=== PATIENT | male | born 1940 | race Caucasian/White ===

== ENCOUNTER → 2017-05-17 | Outpatient (CLI) | payer MEDICARE ==
[2016-11-12 13:40] VITALS: BP 156/93
--- NOTE | 2017-05-17 11:00 | RAD ---
Indication: Tobacco use. Axial imaging through the chest was performed without contrast. Correlation is made with prior CT chest from 05/12/2016. No axillary lymphadenopathy is detected. Small lymph nodes in the superior mediastinum are stable. No definite mediastinal or hilar lymphadenopathy is detected. There are coronary arterial calcifications present. No pericardial or pleural fluid is identified. Parenchymal evaluation does show centrilobular emphysematous changes throughout both lungs. There is some linear parenchymal scarring in the right lower lobe with minimal subpleural nodularity seen, stable when compared with prior exam. No new parenchymal nodules identified. The upper abdomen is unremarkable. Impression: Stable noncontrast CT chest when compared with prior examination from one year earlier. PQRS Compliance Statement: One or more of the following individualized dose reduction techniques were utilized for this examination: 1. Automated exposure control 2. Adjustment of the mA and/or kV according to patient size 3. Use of iterative reconstruction technique
== END | disposition home or self-care (01) ==
LOC: CT 09:57
PROVIDERS: ATTEND Family Medicine
DX: I25.10 Atherosclerotic heart disease of native coronary artery without angina pectoris (principal); J43.2 Centrilobular emphysema; Z87.891 Personal history of nicotine dependence
CPT/HCPCS: 71250

== ENCOUNTER → 2018-07-10 | Outpatient (CLI) | payer MEDICARE ==
[2016-11-12 13:40] VITALS: BP 156/93
--- NOTE | 2018-07-10 15:07 | RAD ---
Low-dose CT of the chest without contrast, 07/10/2018: History: Lung cancer screening, 30 pack-year smoking history Noncontrast scans were obtained utilizing a low-dose technique. Comparison is made to a study from 05/17/2017. Moderate emphysematous changes are present in the lungs with scattered parenchymal scars. There are multiple subpleural and paraseptal blebs. There are several thin-walled air-containing cysts. A small nodule abutting the pleura in the lateral aspect of the right lower lobe best seen on image 185 of series #2 is unchanged since 05/17/2017. It measures 8 x 4.5 mm on the axial images. No new pulmonary nodularity or mass is seen. There is no evidence of pleural fluid. There is moderate calcific plaquing of the thoracic aorta without evidence of aneurysm. Moderate coronary artery calcifications are present. Several small mediastinal lymph nodes are stable. No mediastinal adenopathy is evident. There are moderate scattered degenerative changes in the spine. IMPRESSION: 1. Moderate pulmonary emphysema with scattered parenchymal scars. 2. Stable small right lower lobe nodule. This is considered to be Lung-RADS Category 2. [address] follow-up is suggested. 3. Moderate calcific plaquing of the aorta and coronary arteries. PQRS Compliance Statement: One or more of the following individualized dose reduction techniques were utilized for this examination: 1. Automated exposure control 2. Adjustment of the mA and/or kV according to patient size 3. Use of iterative reconstruction technique
== END | disposition home or self-care (01) ==
LOC: CT 07:21
PROVIDERS: ATTEND Family Medicine
DX: Z12.2 Encounter for screening for malignant neoplasm of respiratory organs (principal); J43.8 Other emphysema; I10 Essential (primary) hypertension; E78.00 Pure hypercholesterolemia, unspecified; I25.10 Atherosclerotic heart disease of native coronary artery without angina pectoris; R91.1 Solitary pulmonary nodule; Z87.891 Personal history of nicotine dependence
CPT/HCPCS: G0297

== ENCOUNTER → 2019-07-02 | Outpatient (CLI) | payer MEDICARE ==
[2016-11-12 13:40] VITALS: BP 156/93
--- NOTE | 2019-07-02 15:38 | RAD ---
PQRS Compliance Statement: One or more of the following individualized dose reduction techniques were utilized for this examination: 1. Automated exposure control 2. Adjustment of the mA and/or kV according to patient size 3. Use of iterative reconstruction technique CT chest without contrast July 02, 2019 INDICATION: Lung nodule. COMPARISON: CT chest May 17, 2017 TECHNIQUE: Multiple axial CT images of the chest were obtained without intravenous contrast. Coronal and sagittal reformats are provided. FINDINGS: There is mild centrilobular and paraseptal pulmonary emphysema. Bronchial wall thickening suggestive of bronchitis. There are no pleural effusions. No pulmonary vascular congestion or pneumothorax. Respiratory motion limits evaluation of the lung bases. Bandlike density in the right lower lobe most favors subsegmental atelectasis versus infiltrate. There is a subpleural 3 mm solid noncalcified pulmonary nodule in the right middle lobe (series 13, image 182) which is stable dating back to May 09, 2017. No new or enlarging solid noncalcified pulmonary nodules are identified. Subpleural nodule identified in the lateral right lower lobe previously measuring 8.5 mm is stable (series 13, image 201). Thyroid gland is normal in appearance. No pathologically enlarged bilateral hilar lymph nodes are identified within the limitations of a noncontrast examination. Subcarinal lymph node measures 9 mm. Ascending thoracic aorta measures 3.5 cm. Heart size is within normal limits. Three-vessel coronary artery vascular calcifications are identified. No suspicious osseous abnormality is identified. Issues abnormalities identified involving the visualized portions of the upper abdomen. IMPRESSION: 1. No new or enlarging solid noncalcified pulmonary nodules. Stable previously seen pulmonary nodules measuring up to 8.5 mm (lung RADS category 2, benign appearance). Recommend 12 month follow-up low-dose chest CT. 2. COPD changes are present with mild centrilobular and paraseptal pulmonary emphysema. Electronically signed by: Ila Ruiz MD (07/02/2019 3:35 PM) [id number]
== END | disposition home or self-care (01) ==
LOC: CT 14:16
PROVIDERS: ATTEND Internal Medicine Pulmonary Disease
DX: J43.9 Emphysema, unspecified (principal); R91.8 Other nonspecific abnormal finding of lung field
CPT/HCPCS: 71250

== ENCOUNTER → 2020-07-17 | Outpatient (CLI) | payer MEDICARE ==
[2016-11-12 13:40] VITALS: BP 156/93
--- NOTE | 2020-07-17 14:20 | RAD ---
CT CHEST WO CONTRAST Indication: Lung nodule Technique: Noncontrast CT imaging was performed of the chest, multiplanar reconstruction images submitted. One or more of the following individualized dose reduction techniques were utilized for this examination: 1. Automated exposure control 2. Adjustment of the mA and/or kV according to patient size 3. Use of iterative reconstruction technique. Comparison: Exams back to May 12, 2016 Findings: Greater than older exams although more similar to 2019 exam, there is somewhat bandlike density of the right lower lobe such as seen image 173 series 3 about 4.6 cm transverse by 1 cm AP. There is adjacent focus of 1.2 cm nodularity image 177 series 3 also similar to 2019 exam, more prominent than older exams. Adjacent subpleural right lower lobe nodule 0.9 cm image 185 series 3 is similar compared with older exam. 0.6 cm right lower lobe subpleural nodule image 173 series 3 is stable compared with older exams. 0.2 cm posterior right upper lobe nodule image 99 series 3 is unchanged. 0.3 cm subpleural right upper lobe nodule image 164 series 3 is unchanged. 0.3 cm right middle lobe nodule image 197 is stable. There is 0.2 cm subpleural left upper lobe nodule image 133. There is no new infiltrate, pleural or pericardial fluid, or pneumothorax. There is prominent coronary calcification. Thoracic aortic caliber is within limits, some scattered plaque present. There is multilevel thoracic spondylosis. There is again centrilobular and paraseptal emphysema. There are again thin walled air cysts of the lower lobes bilaterally. No new significantly enlarged nodes are identified of the chest, again some small mediastinal nodes. Minimal density with linear morphology in the mainstem bronchi greater on the right is more likely due to mucus. IMPRESSION: 1. There is persistent focus of bandlike density of the right lower lobe adjacent focus of nodularity, findings similar to 2019 exam although greater than older exams. Findings may be component of fibrotic change and atelectasis although attention on continued follow-up such as in 6 months is recommended as per revised Fleischner guidelines. No new suspicious lung nodularity is identified. 2. There is again prominent coronary calcification. 3. There is emphysema. Electronically signed by: Vinicio Simmons MD (07/17/2020 2:17 PM) [facility]
== END | disposition home or self-care (01) ==
LOC: CT 09:17
PROVIDERS: ATTEND Internal Medicine Pulmonary Disease
DX: J43.2 Centrilobular emphysema (principal); J92.9 Pleural plaque without asbestos; J98.4 Other disorders of lung; I25.10 Atherosclerotic heart disease of native coronary artery without angina pectoris; M47.814 Spondylosis without myelopathy or radiculopathy, thoracic region
CPT/HCPCS: 71250

== ENCOUNTER 2020-08-27 22:07 | Emergency (ER) | payer MEDICARE ==
[~2020-08-27] VITALS: Ht 182.9 cm; Wt 90.9 kg
[2020-08-27 22:35] LABS: BASO # 0.1 x10^3/uL (0.0-0.2); BASO % 1 % (0-3); EOS # 0.4 x10^3/uL (0.0-0.7); EOS % 5 % (0-3); HEMATOCRIT 50.3 % (39.0-53.0); HEMOGLOBIN 16.9 g/dL (13.0-17.5); LYMPH # 1.5 x10^3/uL (1.0-4.8); LYMPH % 19 % (24-48); MEAN CORPUSCULAR HEMOGLOBIN 33 pg (25-35); MEAN CORPUSCULAR HGB CONC 34 g/dL (31-37); MEAN CORPUSCULAR VOLUME 99 fL (79-100); MONO # 0.8 x10^3/uL (0.0-1.1); MONO % 10 % (0-9); NEUT # 5.3 x10^3/uL (1.8-7.7); NEUT % 66 % (31-73); PLATELET COUNT 198 x10^3/uL (140-400); RED BLOOD COUNT 5.08 x10^6/uL (4.30-5.70); RED CELL DISTRIBUTION WIDTH 14.6 % (11.5-14.5); WHITE BLOOD COUNT 8.1 x10^3/uL (4.0-11.0)
--- NOTE | 2020-08-27 22:36 | PHYS DOC ---
Past Medical History Past Medical History: COPD, GERD, High Cholesterol, Hypertension Past Surgical History: Tonsillectomy Smoking Status: Current Every Day Smoker Alcohol Use: Heavy Drug Use: None General Adult EDM: Chief Complaint: MECHANICAL FALL HPI: HPI: 80-year-old male past medical history significant for hypertension, hyperlipidemia, GERD, tobacco dependence with COPD and daily alcohol abuse (scotch whiskey), presents to the ED with complaints of sharp, nonradiating neck pain after patient had an accidental fall at 2:30 PM this afternoon while going upstairs. Patient states he lost his balance and fell backwards, hitting his head on a humidifier and a carpeted floor (underlying cement), no LOC. Also states "I bruised my tailbone." Patient states he had dinner and a drink of scotch whiskey and the pain continued to worsen. No relief with 2 tablets of Tylenol. Patient states while he was in the ed waiting room he got up to walk and felt something pop as if you were popping knuckles. Denies any prior head or neck injury. Denies any saddle anesthesia, midline thoracic/lumbar or pelvic pain, urinary or bowel retention or incontinence. Denies any drug use. Denies any weakness or loss of sensation. Is not on any anticoagulants. Review of Systems: Review of Systems: Constitutional: Denies fever or chills. [] Eyes: Denies change in visual acuity. [] Or vision loss HENT: Denies nasal congestion or sore throat. [] Respiratory: Denies cough or shortness of breath. [] Or hemoptysis Cardiovascular: Denies chest pain or edema. [] Or syncope GI: Denies abdominal pain, nausea, vomiting, bloody stools or diarrhea. [] : Denies dysuria. [] Or hematuria Musculoskeletal: Denies back pain or joint pain. [] Integument: Denies rash. [] Or swelling Neurologic: Denies headache, focal weakness or sensory changes. [] No associa caryn dizziness, lightheadedness, Endocrine: Denies polyuria or polydipsia. [] Lymphatic: Denies swollen glands. [] Psychiatric: Denies depression or anxiety. [] Heart Score: Risk Factors: Risk Factors: DM, Current or recent (<one month) smoker, HTN, HLP, family history of CAD, obesity. Risk Scores: Score 0 - 3: 2.5% MACE over next 6 weeks - Discharge Home Score 4 - 6: 20.3% MACE over next 6 weeks - Admit for Clinical Observation Score 7 - 10: 72.7% MACE over next 6 weeks - Early Invasive Strategies Allergies: Allergies: Allergies Coded Allergies Type Severity Reaction Last Updated Verified No Known Drug Allergies 11/11/16 No Physical Exam: PE: Constitutional: Well developed, well nourished, no acute distress, non-toxic appearance. [] HENT: Normocephalic, atraumatic, no hematoma, bilateral external ears normal, oropharynx dry, no oral exudates, nose normal. [] w/dentures, TMs normal, no septal hematoma Eyes: PERRLA, EOMI, conjunctiva normal, no discharge. [] Neck: Normal range of motion, cannot appreciate midline neck pain, c-collar in pain, supple, no stridor. [] Cardiovascular:Heart rate regular rhythm, no murmur [] Lungs & Thorax: Bilateral breath sounds clear to auscultation [] Abdomen: Bowel sounds normal, soft, no tenderness, no masses, no pulsatile masses. [] No pelvic pain with hip rocking Skin: Warm, dry, no erythema, no rash. [] Back: No midline or lateral tenderness, no CVA tenderness. [] Extremities: No tenderness, no cyanosis, no clubbing, ROM intact, no edema. [] 5/5 equal UE muscle strength Neurologic: Alert and oriented X 3, normal motor function, normal sensory function, no focal deficits noted. [] Psychologic: Affect normal, judgement normal, mood normal. [] Current Patient Data: Vital Signs: Vital Signs Date Time Temp Pulse Resp B/P (MAP) Pulse Ox O2 Delivery O2 Flow Rate FiO2 08/27/20 22:20 98.1 86 21 165/93 (117) 86 Room Air 98.1 EKG: EKG: [] Radiology/Procedures: Radiology/Procedures: IMAGING REPORT Signed PATIENT: NAVJOT CHRISTOPHER ACCOUNT: [id number] : 1940 LOCATION: ER AGE: 80 SEX: M EXAM STATUS: REG ER ORD. PHYSICIAN: SUMMER BHAT DO REASON: fall PROCEDURE: CT HEAD AND CERVICAL SPINE WO Exam: CT head and cervical spine INDICATION: Fall TECHNIQUE: Sequential axial images through the head and cervical spine were obtained without the administration of IV contrast. Comparisons: None FINDINGS: Head: No focal parenchymal lesion or hemorrhage is identified. There is no midline shift or sulcal effacement. No acute vascular territory infarction is identified. Apple-white distinction is preserved. The ventricular system is within normal limits without compression hydrocephalus. The basal cisterns are well maintained. The visualized portions of the paranasal sinuses and mastoid air cells are well-pneumatized. No acute fractures. Cervical spine: Vertebral body heights and alignment are well-maintained. Fracture to the cervical spine is not identified. Multilevel spondylotic change in cervical spine with degenerative disc disease greatest at C4-C5, C5-C6 and C6-C7. Mild bilateral facet arthropathy is also noted. Visualized paraspinal soft tissues are unremarkable. IMPRESSION: 1. No acute intracranial abnormality. 2. Negative CT C-spine for acute traumatic injury. Exposure: One or more of the following in the visualized dose reduction techniques were utilized for this examination: 1. Automated exposure control 2. Adjustment of the MA and/or KV according to patient size Use of iterative of reconstructive technique Electronically signed by: Emil Crook MD (08/27/2020 11:03 PM) [facility] DICTATED and SIGNED BY: EMIL CROOK MD DATE: 08/27/202302 IMAGING REPORT Signed PATIENT: NAVJOT CHRISTOPHER ACCOUNT: [id number] : 1940 LOCATION: ER AGE: 80 SEX: M EXAM STATUS: REG ER ORD. PHYSICIAN: SUMMER BHAT DO REASON: fall PROCEDURE: PELVIS AP pelvis x-ray HISTORY: Fall, pain. FINDINGS: The upper iliac crests and upper sacrum are outside the [id number]. The visualized pelvis and the [id number]-[id number] demonstrates no fracture or dislocation. Mild acetabulum spurring of the hips bilaterally. IMPRESSION: No acute osseous injury of the imaged pelvis. The upper iliac crests and sacrum are outside the [id number] and are not evaluated. AP chest x-ray HISTORY: Fall. FINDINGS: Heart size normal. Mediastinal silhouette is normal. No pneumothorax. No pleural effusions. Mild discoid atelectasis left lower lobe. Bones unremarkable. IMPRESSION: No acute process. Mild discoid atelectasis at the left lower lobe. Electronically signed by: Kasey Bond MD (08/27/2020 11:12 PM) [facility] [place]CTATED and SIGNED BY: KASEY BOND MD DATE: 08/27/20 9908 Course & Med Decision Making: Course & Med Decision Making Pertinent Labs and Imaging studies reviewed. (See chart for details) The patient presented to the emergency department with a c-collar in place. With a c-collar in place I performed an initial exam and determined that the Nexus C-spine criteria are negative: There is no post midline tenderness, the patient is not intoxicated, there is a normal level of alertness, there are no focal neurologic deficits and there are no distracting injuries. Therefore the c-collar has been removed. On re-eval pt with abrasion to left elbow, no ttp over bone with normal rom. Tetanus UTD. Pain over coccyx-mild. Neck pain is right lateral neck pain, worsened when turning his head. Declines muscle relaxers or narcotics. Not have NSAIDs due to chronic kidney disease. Has Tylenol at home and Biofreeze at home. Will prescribe a Lidoderm patch. CT imaging of the head and cervical spine showed no acute traumatic injury. Chest and pelvic x-ray with no fracture. Labs show stable chronic kidney disease stage III. Patient with no preceding symptoms, no syncope, accidental mechanical fall while mildly intoxicated. Strict ED return precautions were given for neurologic deficits, saddle anesthesia, weakness or sensory changes, severe headache or nausea or vomiting. Encouraged urgent outpatient follow-up with PMD and neurosurgery if pain should persist. Life-threatening processes were considered but are low suspicion at this time, given history and physical exam. Pt was educated on all prescription medications and adverse effects. All patient's questions were answered and pt was stable at time of discharge. Life/limb-threatening differential includes but is not limited to, intracranial hemorrhage, diffuse axonal injury, spinal cord syndrome, unstable cervical fracture or SCIWORA, fractures or joint dislocations, neurovascular injuries, organ injury or laceration, pneumothorax, pneumoperitoneum, pericardial tamponade, unstable pelvic fracture, compartment syndrome, flail chest or respiratory distress, burn injury or asphyxiation I spoken with the patient and her caregivers. I explained the patient's condition, diagnoses and treatment plan based on the information available to me at this time. I have answered the patient and her caregiver's questions and addressed any concerns. The patient and her caregivers have a good understanding of patient's diagnosis, condition and treatment plan as can be expected at this point. Vital signs have been stable. Patient's condition is stable and appropriate for discharge from the emergency department. Patient will pursue further outpatient evaluation with primary care physician or other designated or consulting physician as outlined in the discharge instructions. The patient and/or caregivers are agreeable to this plan of care and follow-up instructions have been explained in detail. The patient and/or caregivers have received these instructions in written form and have expressed an understanding of the discharge instructions. The patient and/or caregivers are aware that any significant change of condition or worsening of symptoms should prompt immediate return to this or the closest emergency department or call to [phone]. Loi Disclaimer: Loi Disclaimer: This electronic medical record was generated, in whole or in part, using a voice recognition dictation system. Departure Departure Impression: Primary Impression: Fall Additional Impressions: Neck pain CKD (chronic kidney disease) Alcohol abuse Disposition: 01 DC HOME SELF CARE/HOMELESS Condition: STABLE Referrals: ENRIQUE RUGGIERO (PCP) Patient Instructions: Kidney Failure, Soft Tissue Injury of the Neck Additional Instructions: FOLLOW UP WITH NEUROSURGERY: Neurological Surgery [facility] Address: [address] [place] [id number] EMERGENCY DEPARTMENT GENERAL DISCHARGE INSTRUCTIONS Thank you for coming to [facility] Emergency Department (ED) today and trusting us with you care. We trust that you had a positive experience in our Emergency Department. If you wish to speak to the department management, you may call the Director at [phone]. YOUR FOLLOW UP INSTRUCTIONS ARE FOLLOWS: 1. Do you have a private Doctor? If you do not have a private doctor, please ask for a resource list of physicians or clinics that may be able to assist you with follow up care. 2. The Emergency Physicain has interpreted your x-rays. The X-Ray specialist will also review them. If there is a change in the findings, you will be notified in 48 hours when at all possible. 3. A lab test or culture has been done, your results will be reviewed and you will be notified if you need a change in treatment. ADDITIONAL INSTRUCTIONS AND INFORMATION: 1. Your care today has been supervised by a physician who is specially trained in emergency care. Many problems require more than one evaluation for a complete diagnosis and treatment. We recommend that you schedule your follow up appointment as recommended to ensure complete treatment of you illness or injury. If you are unable to obtain follow up care and continue to have a problem, or if your condition worsens, we recommend that you return to the ED. 2. We are not able to safely determine your condition over the phone nor are we able to give sound medical advice over the phone. For these safety reasons, if you call for medical advice we will ask you to come to the ED for further evaluation. 3. If you have any questions regarding these discharge instructions please call the ED at [phone]. SAFETY INFORMATION: In the interest of safety, wellness, and injury prevention; we encourage you to wear your sealbelt, if you smoke; quite smoking, and we encourage family to use a protective helmet for bicycling and other sporting events that present an increased risk for head injury. IF YOUR SYMPTOMS WORSEN OR NEW SYMPTOMS DEVELOP, OR YOU HAVE CONCERNS ABOUT YOUR CONDITION; OR IF YOUR CONDITION WORSENS WHILE YOU ARE WAITING FOR YOUR FOLLOW UP APPOINTMENT; EITHER CONTACT YOUR PRIMARY CARE DOCTOR, THE PHYSICIAN WHOSE NAME AND NUMBER YOU WERE GIVEN, OR RETURN TO THE ED IMMEDIATELY. Scripts Lidocaine (Lido Brian) 1 Each Adh..patch 1 EACH TP DAILY for pain for 4 Days, #4 PATCH Prov: SUMMER BHAT DO 08/27/20 SUMMER BHAT DO Aug 27, 2020 22:36
[2020-08-27 22:49] LABS: CALCIUM 8.9 mg/dL (8.5-10.1); CREATININE 1.9 mg/dL (0.7-1.3); GFR 34.4; POTASSIUM 4.1 mmol/L (3.5-5.1)
[2020-08-27 22:57] LABS: ALBUMIN 3.6 g/dL (3.4-5.0); ALBUMIN/GLOBULIN RATIO 0.9 (1.0-1.7); TOTAL BILIRUBIN 0.3 mg/dL (0.2-1.0); TOTAL PROTEIN 7.8 g/dL (6.4-8.2)
--- NOTE | 2020-08-27 23:06 | RAD ---
Exam: CT head and cervical spine INDICATION: Fall TECHNIQUE: Sequential axial images through the head and cervical spine were obtained without the administration of IV contrast. Comparisons: None FINDINGS: Head: No focal parenchymal lesion or hemorrhage is identified. There is no midline shift or sulcal effacement. No acute vascular territory infarction is identified. Apple-white distinction is preserved. The ventricular system is within normal limits without compression hydrocephalus. The basal cisterns are well maintained. The visualized portions of the paranasal sinuses and mastoid air cells are well-pneumatized. No acute fractures. Cervical spine: Vertebral body heights and alignment are well-maintained. Fracture to the cervical spine is not identified. Multilevel spondylotic change in cervical spine with degenerative disc disease greatest at C4-C5, C5-C6 and C6-C7. Mild bilateral facet arthropathy is also noted. Visualized paraspinal soft tissues are unremarkable. IMPRESSION: 1. No acute intracranial abnormality. 2. Negative CT C-spine for acute traumatic injury. Exposure: One or more of the following in the visualized dose reduction techniques were utilized for this examination: 1. Automated exposure control 2. Adjustment of the MA and/or KV according to patient size Use of iterative of reconstructive technique Electronically signed by: Emil Grace MD (08/27/2020 11:03 PM) [facility]
--- NOTE | 2020-08-27 23:14 | RAD ---
AP pelvis x-ray HISTORY: Fall, pain. FINDINGS: The upper iliac crests and upper sacrum are outside the [id number]-cd-ghcs. The visualized pelvis and the bddaq-jb-pucy demonstrates no fracture or dislocation. Mild acetabulum spurring of the hips bilaterally. IMPRESSION: No acute osseous injury of the imaged pelvis. The upper iliac crests and sacrum are outside the nmlxu-zi-nyrs and are not evaluated. AP chest x-ray HISTORY: Fall. FINDINGS: Heart size normal. Mediastinal silhouette is normal. No pneumothorax. No pleural effusions. Mild discoid atelectasis left lower lobe. Bones unremarkable. IMPRESSION: No acute process. Mild discoid atelectasis at the left lower lobe. Electronically signed by: Michel Norwood MD (08/27/2020 11:12 PM) [facility]
--- NOTE | 2020-08-27 23:14 | RAD ---
AP pelvis x-ray HISTORY: Fall, pain. FINDINGS: The upper iliac crests and upper sacrum are outside the huaeg-xj-sbka. The visualized pelvis and the uvdjy-ne-yeqq demonstrates no fracture or dislocation. Mild acetabulum spurring of the hips bilaterally. IMPRESSION: No acute osseous injury of the imaged pelvis. The upper iliac crests and sacrum are outside the evmjx-nk-tzoc and are not evaluated. AP chest x-ray HISTORY: Fall. FINDINGS: Heart size normal. Mediastinal silhouette is normal. No pneumothorax. No pleural effusions. Mild discoid atelectasis left lower lobe. Bones unremarkable. IMPRESSION: No acute process. Mild discoid atelectasis at the left lower lobe. Electronically signed by: Michel Norwood MD (08/27/2020 11:12 PM) [facility]
[2020-08-27] MEDS ORDERED: LIDO1ADH78 TP (23:55)
[2020-08-28 00:03] VITALS: BP 202/116
[2020-08-28] MEDS ORDERED: NEOMY/BACITR/POLYMYXIN OINT PACKET. TP ONE (00:30)
[2020-08-28] MEDS ORDERED: ACETAMINOPHEN 500 MG TABLET PO ONE (00:30)
[2020-08-28] MEDS ORDERED: LIDOCAINE (700MG/PATCH) PATCH. TD ONE (00:30)
== END 2020-08-28 00:19 | disposition home or self-care (01) ==
LOC: ER 22:07
DX: S50.312A Abrasion of left elbow, initial encounter (principal); M54.2 Cervicalgia; I12.9 Hypertensive chronic kidney disease with stage 1 through stage 4 chronic kidney disease, or unspecified chronic kidney disease; N18.9 Chronic kidney disease, unspecified; J44.9 Chronic obstructive pulmonary disease, unspecified; K21.9 Gastro-esophageal reflux disease without esophagitis; E78.00 Pure hypercholesterolemia, unspecified; F17.200 Nicotine dependence, unspecified, uncomplicated; F10.10 Alcohol abuse, uncomplicated; Z90.89 Acquired absence of other organs; W18.09XA Striking against other object with subsequent fall, initial encounter; Y93.89 Activity, other specified; Y92.89 Other specified places as the place of occurrence of the external cause; Y99.8 Other external cause status
CPT/HCPCS: 36415; 70450; 71045; 72125; 72170; 80053; 85025; 99285; G0480

== ENCOUNTER → 2021-01-19 | Outpatient (CLI) | payer MEDICARE ==
[~2021-01-19] MED LIST: LIDO1ADH78 TP
--- NOTE | 2021-01-19 13:47 | RAD ---
CT of the chest without contrast 01/19/2021 INDICATION: Pulmonary infiltrates COMPARISON STUDY: CT of the chest without contrast July 09, 2020. TECHNIQUE: Multidetector CT imaging of the chest was performed without IV contrast FINDINGS: There is emphysematous changes throughout the lungs. No pneumothorax or pleural effusion is identified. No acute appearing infiltrates are seen. Heart size is normal. No pericardial effusion i s identified. Dense coronary calcification noted. Scattered small mediastinal lymph nodes are seen wi thout evidence of pathologically enlarged adenopathy. The appearance is similar to comparison study. Limited visualization of the upper abdomen demonstrates no acute abnormality. Degenerative changes of the thoracic spine are noted. No acute osseous changes are seen. IMPRESSION: 1. No evidence of acute cardiopulmonary process is identified 2. Emphysema 3. Coronary calcification CT DOSING PQRS STATEMENT: One or more of the following individualized dose reduction techniques were utilized for this examinat ion: 1. Automated exposure control 2. Adjustment of the mA and/or kV according to patient size 3. Use of iterative reconstruction technique Electronically signed by: Alex Shepherd MD (01/19/2021 1:44 PM) [id number]
== END ==
LOC: CT 09:06
PROVIDERS: ATTEND Internal Medicine Pulmonary Disease
DX: J43.9 Emphysema, unspecified (principal); J84.10 Pulmonary fibrosis, unspecified; R91.8 Other nonspecific abnormal finding of lung field; I25.84 Coronary atherosclerosis due to calcified coronary lesion
CPT/HCPCS: 71250

== ENCOUNTER → 2022-01-20 | Outpatient (CLI) | payer MEDICARE ==
--- NOTE | 2022-01-20 12:19 | RAD ---
CT THORAX WO INDICATION: LUNG SCREENING. History of smoking. COMPARISON STUDY: 02/06/2021. TECHNIQUE: Unenhanced axial images were obtained through the lungs and upper abdomen using low dose technique. Coronal and sagittal multiplanar reformatted images were also obtained. PQRS compliance statement: One or more of the following individualized dose reduction techniques were utilized for this examinat ion: 1. Automated exposure control 2. Adjustment of the mA and/or kV according to patient size 3. Use of iterative reconstruction technique FINDINGS: Lung Nodules: No suspicious pulmonary nodules. Lungs and Airways: No pulmonary mass or consolidation. Paraseptal and centrilobular emphysema. Normal central airways. Pleura: Normal pleural spaces. Heart and Mediastinum: The visualized portions of the thyroid gland are normal in size and attenuatio n. No axillary or supraclavicular lymphadenopathy. No mediastinal, hilar or retrocrural lymphadenopat hy. Normal cardiac size. No pericardial effusion. Coronary artery atherosclerotic disease. 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 Abdomen: The visualized abdominal organs demonstrate no abnormality. Bones and Soft Tissues: Degenerative changes of the spine. IMPRESSION: 1. No suspicious pulmonary nodules Lung-RADS Category: 1 Management Recommendation: Follow up low-dose chest CT in one year. 2. Emphysema. 3. Coronary artery atherosclerotic disease. Electronically signed by: Vinicio Singh MD (01/20/2022 12:17 PM) [id number]
== END ==
LOC: CT 09:01
PROVIDERS: ATTEND Internal Medicine Pulmonary Disease
DX: Z12.2 Encounter for screening for malignant neoplasm of respiratory organs (principal); J43.9 Emphysema, unspecified; I25.10 Atherosclerotic heart disease of native coronary artery without angina pectoris; I70.0 Atherosclerosis of aorta; M47.819 Spondylosis without myelopathy or radiculopathy, site unspecified
CPT/HCPCS: 71250